=== PATIENT | male | born 1970 | race Caucasian/White ===

== ENCOUNTER 2020-04-13 23:02 | Inpatient (IN) ==
[2020-04-14] MEDS ORDERED: 0.9 % Sodium Chloride 1,000 ML IVC ONE ×3 (00:56→06:14)
[2020-04-14] MEDS ORDERED: 0.9 % Sodium Chloride 1,000 ML ONE (00:58)
[2020-04-14] MEDS ORDERED: D5% in Water 1,000 ML IVC PRN (01:06)
[2020-04-14] MEDS ORDERED: *HR* Dextrose 50 % in Water (Vial) 50 ML VIAL IVP PRN (01:06)
[2020-04-14] MEDS ORDERED: D5% in Water 1,000 ML IVC ONE (01:06)
[2020-04-14] MEDS ORDERED: Dextrose Gel 15 GM/37.5 ML TUBE PO PRN ×2 (01:06)
[2020-04-14] MEDS ORDERED: *HR* Dextrose 50 % in Water (Vial) 50 ML VIAL ONE (01:09)
[2020-04-14] MEDS ORDERED: Naloxone 0.4 MG/ML INJ IVP PRN (01:29)
[2020-04-14] MEDS ORDERED: Acetaminophen IV 500 MG/50 ML INFUS..BTL IVPB ONE (01:46)
[2020-04-14] MEDS ORDERED: Albuterol 2.5 MG/3 ML NEBULIZER IH ONE (02:10)
[2020-04-14] MEDS ORDERED: Calcium Gluconate 1gm/50mL 1 GM/50 ML BAG IVPB ONE ×2 (02:12→11:35)
[2020-04-14 03:17] LABS: Hematocrit 26.1 % (37.5-50.1); Hemoglobin 7.8 g/dL (12.9-16.9); Mean Corpuscular HGB Conc 29.9 g/dL (31.6-35.5); Mean Corpuscular Hemoglobin 26.4 pg (28.0-33.3); Mean Corpuscular Volume 88.2 fL (83.0-100.0); Mean Platelet Volume 10.3 fL (9.4-12.4); Platelet Count 321 K/mcL (140-400); Red Blood Count 2.96 M/mcL (4.19-5.50); Red Cell Distribution Width 16.3 % (11.5-14.5); White Blood Count 11.4 K/mcL (4.3-11.1)
[2020-04-14 03:18] LABS: INR 1.2; Prothrombin Time 14.1 Seconds (9.4-12.1)
[2020-04-14 03:37] LABS: % Iron Saturation 95 % (20-55); Iron 172 mcg/dL (65-175); Transferrin 130 mg/dL (203-362)
[2020-04-14 03:38] LABS: Alanine Aminotransferase 14 Units/L (7-52); Albumin 3.5 g/dL (3.5-5.7); Albumin/Globulin Ratio 0.9 (1.1-2.2); Alkaline Phosphatase 105 Units/L (34-104); Aspartate Amino Transferase 11 Units/L (13-39); Bilirubin,Total 0.3 mg/dL (0.3-1.0); Blood Urea Nitrogen > 130 mg/dL (6-20); Calcium 5.7 mg/dL (8.6-10.3); Carbon Dioxide 5 mEq/L (23-29); Chloride 107 mEq/L (98-107); Globulin 3.9 g/dL (2.4-3.5); Glucose 84 mg/dL (70-105); Magnesium 0.9 mg/dL (1.6-2.6); Phosphorous 12.2 mg/dL (2.7-4.5); Potassium 5.9 mEq/L (3.5-5.1); Sodium 136 mEq/L (136-145); Total Protein 7.4 g/dL (6.4-8.9); eGFR For African Americans 3 (> 60); eGFR For Non-African Americans 2 (> 60)
[2020-04-14] MEDS ORDERED: 0.9 % Sodium Chloride 1,000 ML IV ONE ×2 (03:48→06:33)
[2020-04-14 03:55] LABS: Ferritin 618 ng/mL (20-250)
[2020-04-14] MEDS ORDERED: Magnesium Sulfate 1 GM/102 ML PIGGYBACK IVPB ONE (04:21)
[2020-04-14 08:40] LABS: Hematocrit 24.2 % (37.5-50.1); Hemoglobin 7.3 g/dL (12.9-16.9); Mean Corpuscular HGB Conc 30.2 g/dL (31.6-35.5); Mean Corpuscular Hemoglobin 26.7 pg (28.0-33.3); Mean Corpuscular Volume 88.6 fL (83.0-100.0); Mean Platelet Volume 10.1 fL (9.4-12.4); Platelet Count 313 K/mcL (140-400); Red Blood Count 2.73 M/mcL (4.19-5.50); Red Cell Distribution Width 16.5 % (11.5-14.5); White Blood Count 11.6 K/mcL (4.3-11.1)
[2020-04-14 08:55] LABS: Blood Urea Nitrogen > 130 mg/dL (6-20); Calcium 5.6 mg/dL (8.6-10.3); Carbon Dioxide 6 mEq/L (23-29); Chloride 110 mEq/L (98-107); Glucose 88 mg/dL (70-105); Magnesium 1.1 mg/dL (1.6-2.6); Potassium 5.4 mEq/L (3.5-5.1); Sodium 136 mEq/L (136-145); eGFR For African Americans 3 (> 60); eGFR For Non-African Americans 2 (> 60)
[2020-04-14] MEDS ORDERED: Sodium Bicarbonate 150 MEQ in D5% in Water 1,000 ML IVC PRN ×2 (09:15→09:25)
[2020-04-14] MEDS: SODIUM ZIRCONIUM CYCLOSILICATE 5 GM POWD.PACK PO SCH (09:53)
[2020-04-14] MEDS: Sodium Bicarbonate 150 MEQ in D5% in Water 1,000 ML IVC SCH ×2 (10:15→22:19)
[2020-04-14] MEDS: Calcium Acetate 667 MG CAPSULE PO SCH ×2 (12:28→18:27)
[2020-04-14 14:19] LABS: Blood Urea Nitrogen > 130 mg/dL (6-20); Calcium 5.3 mg/dL (8.6-10.3); Carbon Dioxide 5 mEq/L (23-29); Chloride 109 mEq/L (98-107); Glucose 94 mg/dL (70-105); Potassium 4.5 mEq/L (3.5-5.1); Sodium 137 mEq/L (136-145); eGFR For African Americans 3 (> 60); eGFR For Non-African Americans 2 (> 60)
[2020-04-14 19:50] LABS: Hematocrit 21.3 % (37.5-50.1); Hemoglobin 6.7 g/dL (12.9-16.9)
[2020-04-14 20:24] LABS: Blood Urea Nitrogen > 130 mg/dL (6-20); Calcium 5.5 mg/dL (8.6-10.3); Carbon Dioxide 7 mEq/L (23-29); Chloride 108 mEq/L (98-107); Glucose 117 mg/dL (70-105); Magnesium 1.8 mg/dL (1.6-2.6); Potassium 4.3 mEq/L (3.5-5.1); Sodium 137 mEq/L (136-145); eGFR For African Americans 3 (> 60); eGFR For Non-African Americans 2 (> 60)
[2020-04-15 00:46] LABS: VBG Ionized Calcium 0.67 mmol/L (1.15-1.35)
[2020-04-15 00:49] LABS: Basophils # 0.1 K/mcL (0.0-0.2); Basophils % 0.6 %; Eosinophils # 0.3 K/mcL (0.0-0.6); Eosinophils % 2.6 %; Hematocrit 21.5 % (37.5-50.1); Hemoglobin 6.6 g/dL (12.9-16.9); Immature Granulocytes % 0.9 % (0-4); Lymphocytes # 1.6 K/mcL (0.6-4.6); Lymphocytes % 13.8 %; Mean Corpuscular HGB Conc 30.7 g/dL (31.6-35.5); Mean Corpuscular Volume 84.6 fL (83.0-100.0); Mean Platelet Volume 10.2 fL (9.4-12.4); Monocytes # 1.3 K/mcL (0.0-1.3); Monocytes % 11.3 %; Neutrophils # 8.3 K/mcL (1.6-8.9); Platelet Count 302 K/mcL (140-400); Red Blood Count 2.54 M/mcL (4.19-5.50); Red Cell Distribution Width 16.1 % (11.5-14.5); Segmented Neutrophils % 70.8 %; White Blood Count 11.8 K/mcL (4.3-11.1)
[2020-04-15 01:07] LABS: Complement C3 97 mg/dL (87-200)
[2020-04-15 01:11] LABS: % Iron Saturation 91 % (20-55); Iron 138 mcg/dL (65-175); Rheumatoid Factor < 10 IU/mL (Less than 14); Transferrin 108 mg/dL (203-362)
[2020-04-15 01:12] LABS: Blood Urea Nitrogen > 130 mg/dL (6-20); Calcium 5.3 mg/dL (8.6-10.3); Carbon Dioxide 8 mEq/L (23-29); Chloride 107 mEq/L (98-107); Glucose 82 mg/dL (70-105); Magnesium 1.6 mg/dL (1.6-2.6); Phosphorous 12.1 mg/dL (2.7-4.5); Potassium 4.3 mEq/L (3.5-5.1); Sodium 138 mEq/L (136-145); eGFR For African Americans 3 (> 60); eGFR For Non-African Americans 2 (> 60)
[2020-04-15 01:25] LABS: Ferritin 547 ng/mL (20-250)
[2020-04-15 01:30] LABS: Folate 8.3 ng/mL (3.0-16.0)
[2020-04-15 01:31] LABS: Vitamin B12 233 pg/mL (250-1100)
[2020-04-15 02:12] LABS: Vitamin D 25 Hydroxy 14 ng/mL (30-80)
[2020-04-15 04:19] LABS: Bacteria,Urine Few per hpf (None-Few); Bilirubin,Urine Negative (Negative); Blood,Urine Moderate (Negative); Clarity,Urine Turbid (Clear); Color,Urine Light-Yellow (Yellow); Glucose,Urine (UA) Normal (Normal); Ketones,Urine Negative (Negative); Leukocyte Esterase,Urine Large (Negative); Mucus,Urine Few per lpf (None-Few); Nitrite,Urine Negative (Negative); PH,Urine 6.5 pH Units (5.0-8.0); Protein,Urine 100 mg/dL (Neg-Trace); RBC,Urine 50-100 per hpf (0-3); Specific Gravity,Urine 1.011 (1.010-1.025); Urobilinogen,Urine Normal (Normal); WBC,Urine TNTC per hpf (0-3)
[2020-04-15 04:40] LABS: Protein/Creatinine Ratio,Urine 3.94 mg/mg (0.00-0.20)
[2020-04-15] MEDS ORDERED: 0.9 % Sodium Chloride 250 ML IVC SCH (05:30)
[2020-04-15] MEDS ORDERED: 0.9 % Sodium Chloride 250 ML ONE ×2 (06:03→09:14)
[2020-04-15] MEDS: Calcium Acetate 667 MG CAPSULE PO SCH ×3 (07:27→16:33)
[2020-04-15] MEDS: SODIUM ZIRCONIUM CYCLOSILICATE 5 GM POWD.PACK PO SCH (07:30)
[2020-04-15] MEDS: Sodium Bicarbonate 150 MEQ in D5% in Water 1,000 ML IVC SCH (09:20)
[2020-04-15 13:20] LABS: Hematocrit 24.5 % (37.5-50.1); Hemoglobin 7.8 g/dL (12.9-16.9)
[2020-04-15 16:08] LABS: Hematocrit 25.2 % (37.5-50.1); Hemoglobin 8.2 g/dL (12.9-16.9)
[2020-04-15 21:16] LABS: Hematocrit 25.1 % (37.5-50.1); Hemoglobin 8.2 g/dL (12.9-16.9)
[2020-04-16 00:50] LABS: Basophils # 0.1 K/mcL (0.0-0.2); Basophils % 0.5 %; Eosinophils # 0.3 K/mcL (0.0-0.6); Eosinophils % 2.4 %; Hematocrit 24.7 % (37.5-50.1); Immature Granulocytes % 0.6 % (0-4); Lymphocytes # 1.8 K/mcL (0.6-4.6); Lymphocytes % 14.2 %; Mean Corpuscular HGB Conc 32.4 g/dL (31.6-35.5); Mean Corpuscular Hemoglobin 26.4 pg (28.0-33.3); Mean Corpuscular Volume 81.5 fL (83.0-100.0); Mean Platelet Volume 10.5 fL (9.4-12.4); Monocytes # 1.5 K/mcL (0.0-1.3); Monocytes % 12.2 %; Neutrophils # 8.8 K/mcL (1.6-8.9); Platelet Count 257 K/mcL (140-400); Red Blood Count 3.03 M/mcL (4.19-5.50); Red Cell Distribution Width 15.7 % (11.5-14.5); Segmented Neutrophils % 70.1 %; White Blood Count 12.6 K/mcL (4.3-11.1)
[2020-04-16 01:17] LABS: Blood Urea Nitrogen > 130 mg/dL (6-20); Calcium 5.1 mg/dL (8.6-10.3); Carbon Dioxide 12 mEq/L (23-29); Chloride 102 mEq/L (98-107); Glucose 85 mg/dL (70-105); Magnesium 1.8 mg/dL (1.6-2.6); Phosphorous 11.6 mg/dL (2.7-4.5); Potassium 3.6 mEq/L (3.5-5.1); Sodium 138 mEq/L (136-145); eGFR For African Americans 3 (> 60); eGFR For Non-African Americans 3 (> 60)
[2020-04-16] MEDS: SODIUM ZIRCONIUM CYCLOSILICATE 5 GM POWD.PACK PO SCH (07:22)
[2020-04-16] MEDS: Calcium Acetate 667 MG CAPSULE PO SCH ×3 (07:22→16:37)
[2020-04-16] MEDS ORDERED: Ondansetron 4 MG/2 ML VIAL IVP PRN (07:58)
[2020-04-16] MEDS: Pantoprazole 40 MG VIAL IVP SCH (11:11)
[2020-04-17 01:10] LABS: Basophils # 0.1 K/mcL (0.0-0.2); Basophils % 0.6 %; Eosinophils # 0.4 K/mcL (0.0-0.6); Eosinophils % 3.4 %; Hematocrit 27.3 % (37.5-50.1); Hemoglobin 8.7 g/dL (12.9-16.9); Immature Granulocytes % 0.5 % (0-4); Lymphocytes # 1.8 K/mcL (0.6-4.6); Lymphocytes % 15.5 %; Mean Corpuscular HGB Conc 31.9 g/dL (31.6-35.5); Mean Corpuscular Hemoglobin 26.5 pg (28.0-33.3); Mean Corpuscular Volume 83.2 fL (83.0-100.0); Mean Platelet Volume 10.2 fL (9.4-12.4); Monocytes # 1.3 K/mcL (0.0-1.3); Monocytes % 11.5 %; Neutrophils # 7.9 K/mcL (1.6-8.9); Platelet Count 276 K/mcL (140-400); Red Blood Count 3.28 M/mcL (4.19-5.50); Red Cell Distribution Width 15.4 % (11.5-14.5); Segmented Neutrophils % 68.5 %; White Blood Count 11.5 K/mcL (4.3-11.1)
[2020-04-17 01:51] LABS: Blood Urea Nitrogen > 130 mg/dL (6-20); Calcium 5.5 mg/dL (8.6-10.3); Carbon Dioxide 12 mEq/L (23-29); Chloride 101 mEq/L (98-107); Glucose 58 mg/dL (70-105); Magnesium 1.7 mg/dL (1.6-2.6); Phosphorous 12.3 mg/dL (2.7-4.5); Potassium 3.7 mEq/L (3.5-5.1); Sodium 139 mEq/L (136-145); eGFR For African Americans 3 (> 60); eGFR For Non-African Americans 3 (> 60)
[2020-04-17] MEDS: Pantoprazole 40 MG VIAL IVP SCH (08:04)
[2020-04-17] MEDS: Calcium Acetate 667 MG CAPSULE PO SCH ×3 (08:04→17:01)
[2020-04-17] MEDS: SODIUM ZIRCONIUM CYCLOSILICATE 5 GM POWD.PACK PO SCH (08:04)
[2020-04-17] MEDS: calcitrioL 0.25 MCG CAPSULE PO SCH (14:44)
[2020-04-17] MEDS ORDERED: Calcium Acetate 667 MG CAPSULE PO SCH (17:00)
[2020-04-18 03:36] LABS: Basophils # 0.1 K/mcL (0.0-0.2); Basophils % 0.8 %; Eosinophils # 0.6 K/mcL (0.0-0.6); Eosinophils % 5.5 %; Hematocrit 26.7 % (37.5-50.1); Hemoglobin 8.5 g/dL (12.9-16.9); Immature Granulocytes % 0.4 % (0-4); Lymphocytes # 1.9 K/mcL (0.6-4.6); Mean Corpuscular HGB Conc 31.8 g/dL (31.6-35.5); Mean Corpuscular Hemoglobin 26.5 pg (28.0-33.3); Mean Corpuscular Volume 83.2 fL (83.0-100.0); Mean Platelet Volume 10.6 fL (9.4-12.4); Monocytes # 1.2 K/mcL (0.0-1.3); Monocytes % 11.1 %; Neutrophils # 7.2 K/mcL (1.6-8.9); Platelet Count 317 K/mcL (140-400); Red Blood Count 3.21 M/mcL (4.19-5.50); Red Cell Distribution Width 15.2 % (11.5-14.5); Segmented Neutrophils % 65.2 %
[2020-04-18 03:56] LABS: Blood Urea Nitrogen > 130 mg/dL (6-20); Calcium 6.2 mg/dL (8.6-10.3); Carbon Dioxide 15 mEq/L (23-29); Chloride 100 mEq/L (98-107); Glucose 66 mg/dL (70-105); Magnesium 1.7 mg/dL (1.6-2.6); Phosphorous 11.1 mg/dL (2.7-4.5); Potassium 3.6 mEq/L (3.5-5.1); Sodium 138 mEq/L (136-145); eGFR For African Americans 3 (> 60); eGFR For Non-African Americans 3 (> 60)
[2020-04-18 04:37] LABS: Alpha 2 Globulin (PEP) 0.73 g/dL (0.48-1.05); Beta Globulin (PEP) 0.67 g/dL (0.48-1.10)
[2020-04-18] MEDS: SODIUM ZIRCONIUM CYCLOSILICATE 5 GM POWD.PACK PO SCH (08:11)
[2020-04-18] MEDS: Calcium Acetate 667 MG CAPSULE PO SCH ×3 (08:12→16:36)
[2020-04-18] MEDS: calcitrioL 0.25 MCG CAPSULE PO SCH (08:12)
[2020-04-18] MEDS: Sodium Bicarbonate 75 MEQ in 0.45 % Sodium Chloride 1,000 ML IVC SCH ×2 (09:50→16:37)
[2020-04-18 12:34] LABS: IFE Reflexed NOT DONE
[2020-04-19 06:36] LABS: Basophils # 0.1 K/mcL (0.0-0.2); Basophils % 0.8 %; Eosinophils # 0.7 K/mcL (0.0-0.6); Eosinophils % 6.8 %; Hematocrit 26.4 % (37.5-50.1); Hemoglobin 8.3 g/dL (12.9-16.9); Immature Granulocytes % 0.5 % (0-4); Lymphocytes # 1.9 K/mcL (0.6-4.6); Lymphocytes % 18.3 %; Mean Corpuscular HGB Conc 31.4 g/dL (31.6-35.5); Mean Corpuscular Hemoglobin 25.9 pg (28.0-33.3); Mean Corpuscular Volume 82.5 fL (83.0-100.0); Mean Platelet Volume 10.5 fL (9.4-12.4); Monocytes # 1.4 K/mcL (0.0-1.3); Monocytes % 13.4 %; Neutrophils # 6.4 K/mcL (1.6-8.9); Platelet Count 295 K/mcL (140-400); Red Cell Distribution Width 14.6 % (11.5-14.5); Segmented Neutrophils % 60.2 %; White Blood Count 10.6 K/mcL (4.3-11.1)
[2020-04-19 06:47] LABS: Blood Urea Nitrogen > 130 mg/dL (6-20); Calcium 5.9 mg/dL (8.6-10.3); Carbon Dioxide 19 mEq/L (23-29); Chloride 101 mEq/L (98-107); Glucose 88 mg/dL (70-105); Magnesium 1.4 mg/dL (1.6-2.6); Phosphorous 7.9 mg/dL (2.7-4.5); Potassium 3.3 mEq/L (3.5-5.1); Sodium 139 mEq/L (136-145); eGFR For African Americans 3 (> 60); eGFR For Non-African Americans 3 (> 60)
[2020-04-19] MEDS: Calcium Acetate 667 MG CAPSULE PO SCH ×3 (07:28→16:59)
[2020-04-19] MEDS: calcitrioL 0.25 MCG CAPSULE PO SCH (07:28)
[2020-04-19] MEDS: SODIUM ZIRCONIUM CYCLOSILICATE 5 GM POWD.PACK PO SCH (07:29)
[2020-04-19] MEDS ORDERED: 0.9 % Sodium Chloride 500 ML ONE ×2 (07:49→08:45)
[2020-04-19] MEDS ORDERED: CeFAZolin 2,000 MG/50 ML BAG IVPB ONE (08:55)
[2020-04-19] MEDS ORDERED: *HR* Midazolam HCl 5 MG/5 ML VIAL IVP ONE (08:55)
[2020-04-19] MEDS ORDERED: *HR* FentaNYL (PF) 100 MCG/2 ML VIAL IVP ONE (08:55)
[2020-04-19] MEDS ORDERED: *HR* Midazolam HCl 2 MG/2 ML VIAL ONE (09:05)
[2020-04-19] MEDS ORDERED: Isovue-300 150 ML INFUS..BTL IVP ONE (09:09)
[2020-04-19 11:02] LABS: Hepatitis B Surface Antibody < 3.10 mIU/mL
[2020-04-19 11:13] LABS: Hepatitis B Surface Antigen Nonreactive (Nonreactive)
[2020-04-19] MEDS: Cyanocobalamin (B-12) 1,000 MCG TABLET PO SCH (12:04)
[2020-04-20 02:12] LABS: Basophils # 0.1 K/mcL (0.0-0.2); Basophils % 0.9 %; Eosinophils # 0.6 K/mcL (0.0-0.6); Eosinophils % 5.8 %; Hematocrit 25.6 % (37.5-50.1); Hemoglobin 8.4 g/dL (12.9-16.9); Immature Granulocytes % 0.6 % (0-4); Lymphocytes # 1.7 K/mcL (0.6-4.6); Lymphocytes % 16.2 %; Mean Corpuscular HGB Conc 32.8 g/dL (31.6-35.5); Mean Corpuscular Hemoglobin 27.3 pg (28.0-33.3); Mean Corpuscular Volume 83.1 fL (83.0-100.0); Mean Platelet Volume 10.6 fL (9.4-12.4); Monocytes # 1.3 K/mcL (0.0-1.3); Neutrophils # 6.8 K/mcL (1.6-8.9); Platelet Count 301 K/mcL (140-400); Red Blood Count 3.08 M/mcL (4.19-5.50); Red Cell Distribution Width 15.1 % (11.5-14.5); Segmented Neutrophils % 64.5 %; White Blood Count 10.5 K/mcL (4.3-11.1)
[2020-04-20 02:31] LABS: Blood Urea Nitrogen > 130 mg/dL (6-20); Calcium 6.1 mg/dL (8.6-10.3); Carbon Dioxide 17 mEq/L (23-29); Chloride 100 mEq/L (98-107); Glucose 138 mg/dL (70-105); Magnesium 1.5 mg/dL (1.6-2.6); Sodium 137 mEq/L (136-145); eGFR For African Americans 4 (> 60); eGFR For Non-African Americans 3 (> 60)
[2020-04-20] MEDS: Cyanocobalamin (B-12) 1,000 MCG TABLET PO SCH (07:15)
[2020-04-20] MEDS: Calcium Acetate 667 MG CAPSULE PO SCH ×3 (07:16→16:17)
[2020-04-20] MEDS: calcitrioL 0.25 MCG CAPSULE PO SCH (07:16)
[2020-04-20] MEDS ORDERED: Ergocalciferol (VIT D2) 50,000 UNIT (1.25MG) CAP PO SCH (11:45)
[2020-04-21 04:10] LABS: Basophils # 0.1 K/mcL (0.0-0.2); Basophils % 0.9 %; Eosinophils # 0.7 K/mcL (0.0-0.6); Eosinophils % 6.8 %; Hematocrit 29.2 % (37.5-50.1); Hemoglobin 9.3 g/dL (12.9-16.9); Immature Granulocytes % 0.7 % (0-4); Lymphocytes # 2.1 K/mcL (0.6-4.6); Mean Corpuscular HGB Conc 31.8 g/dL (31.6-35.5); Mean Corpuscular Hemoglobin 26.5 pg (28.0-33.3); Mean Corpuscular Volume 83.2 fL (83.0-100.0); Mean Platelet Volume 10.6 fL (9.4-12.4); Monocytes # 1.4 K/mcL (0.0-1.3); Monocytes % 12.8 %; Neutrophils # 6.2 K/mcL (1.6-8.9); Platelet Count 323 K/mcL (140-400); Red Blood Count 3.51 M/mcL (4.19-5.50); Red Cell Distribution Width 15.1 % (11.5-14.5); Segmented Neutrophils % 58.8 %; White Blood Count 10.6 K/mcL (4.3-11.1)
[2020-04-21 04:58] LABS: Blood Urea Nitrogen > 130 mg/dL (6-20); Calcium 6.7 mg/dL (8.6-10.3); Carbon Dioxide 17 mEq/L (23-29); Chloride 99 mEq/L (98-107); Glucose 87 mg/dL (70-105); Magnesium 1.3 mg/dL (1.6-2.6); Phosphorous 5.7 mg/dL (2.7-4.5); Potassium 4.1 mEq/L (3.5-5.1); Sodium 136 mEq/L (136-145); eGFR For African Americans 4 (> 60); eGFR For Non-African Americans 3 (> 60)
[2020-04-21] MEDS: Cyanocobalamin (B-12) 1,000 MCG TABLET PO SCH (08:42)
[2020-04-21] MEDS: calcitrioL 0.25 MCG CAPSULE PO SCH (08:42)
[2020-04-21] MEDS: Calcium Acetate 667 MG CAPSULE PO SCH ×3 (08:42→15:51)
[2020-04-22 04:20] LABS: Basophils # 0.1 K/mcL (0.0-0.2); Basophils % 0.8 %; Eosinophils # 0.8 K/mcL (0.0-0.6); Eosinophils % 7.8 %; Hematocrit 30.8 % (37.5-50.1); Hemoglobin 9.9 g/dL (12.9-16.9); Immature Granulocytes % 0.5 % (0-4); Lymphocytes # 2.3 K/mcL (0.6-4.6); Mean Corpuscular HGB Conc 32.1 g/dL (31.6-35.5); Mean Corpuscular Hemoglobin 27.1 pg (28.0-33.3); Mean Corpuscular Volume 84.4 fL (83.0-100.0); Mean Platelet Volume 10.6 fL (9.4-12.4); Monocytes # 1.1 K/mcL (0.0-1.3); Monocytes % 10.6 %; Neutrophils # 6.3 K/mcL (1.6-8.9); Platelet Count 338 K/mcL (140-400); Red Blood Count 3.65 M/mcL (4.19-5.50); Red Cell Distribution Width 14.8 % (11.5-14.5); Segmented Neutrophils % 59.3 %; White Blood Count 10.7 K/mcL (4.3-11.1)
[2020-04-22 04:41] LABS: Blood Urea Nitrogen > 130 mg/dL (6-20); Calcium 7.9 mg/dL (8.6-10.3); Carbon Dioxide 18 mEq/L (23-29); Chloride 99 mEq/L (98-107); Glucose 84 mg/dL (70-105); Magnesium 1.8 mg/dL (1.6-2.6); Phosphorous 6.2 mg/dL (2.7-4.5); Potassium 4.1 mEq/L (3.5-5.1); Sodium 136 mEq/L (136-145); eGFR For African Americans 4 (> 60); eGFR For Non-African Americans 3 (> 60)
[2020-04-22] MEDS: Calcium Acetate 667 MG CAPSULE PO SCH ×3 (09:06→16:32)
[2020-04-22] MEDS: Finasteride 5 MG TABLET PO SCH (09:06)
[2020-04-22] MEDS: calcitrioL 0.25 MCG CAPSULE PO SCH (09:06)
[2020-04-22] MEDS: Cyanocobalamin (B-12) 1,000 MCG TABLET PO SCH (09:06)
[2020-04-22] MEDS: Sodium Bicarbonate 75 MEQ in 0.45 % Sodium Chloride 1,000 ML IVC SCH (16:32)
[2020-04-23] MEDS: Sodium Bicarbonate 75 MEQ in 0.45 % Sodium Chloride 1,000 ML IVC SCH (06:57)
[2020-04-23] MEDS: calcitrioL 0.25 MCG CAPSULE PO SCH (07:46)
[2020-04-23] MEDS: Finasteride 5 MG TABLET PO SCH (07:46)
[2020-04-23] MEDS: Cyanocobalamin (B-12) 1,000 MCG TABLET PO SCH (07:46)
[2020-04-23] MEDS: Calcium Acetate 667 MG CAPSULE PO SCH ×3 (07:46→16:33)
[2020-04-23 08:49] LABS: Basophils # 0.1 K/mcL (0.0-0.2); Basophils % 0.9 %; Eosinophils # 0.8 K/mcL (0.0-0.6); Eosinophils % 7.5 %; Hematocrit 30.1 % (37.5-50.1); Hemoglobin 9.6 g/dL (12.9-16.9); Immature Granulocytes % 0.5 % (0-4); Lymphocytes # 2.6 K/mcL (0.6-4.6); Lymphocytes % 25.4 %; Mean Corpuscular HGB Conc 31.9 g/dL (31.6-35.5); Mean Corpuscular Hemoglobin 27.2 pg (28.0-33.3); Mean Corpuscular Volume 85.3 fL (83.0-100.0); Mean Platelet Volume 10.3 fL (9.4-12.4); Monocytes # 0.8 K/mcL (0.0-1.3); Neutrophils # 5.9 K/mcL (1.6-8.9); Platelet Count 332 K/mcL (140-400); Red Blood Count 3.53 M/mcL (4.19-5.50); Red Cell Distribution Width 14.9 % (11.5-14.5); Segmented Neutrophils % 57.7 %; White Blood Count 10.2 K/mcL (4.3-11.1)
[2020-04-23 09:10] LABS: Calcium 7.9 mg/dL (8.6-10.3); Magnesium 1.5 mg/dL (1.6-2.6); Phosphorous 5.9 mg/dL (2.7-4.5)
[2020-04-23] MEDS ORDERED: Heparin 1,000 UNITS/500 mL 500 ML ONE (13:15)
[2020-04-23] MEDS ORDERED: Lidocaine/EPI 1:100k 1% 50 ML VIAL ONE (13:15)
[2020-04-23] MEDS ORDERED: *HR* Midazolam HCl 2 MG/2 ML VIAL IVP ONE (13:26)
[2020-04-23] MEDS ORDERED: *HR* FentaNYL (PF) 100 MCG/2 ML VIAL IVP ONE (13:27)
[2020-04-23] MEDS ORDERED: CeFAZolin 2,000 MG/50 ML BAG IVPB ONE (13:27)
[2020-04-23] MEDS ORDERED: 0.9 % Sodium Chloride 500 ML ONE (13:46)
[2020-04-23] MEDS ORDERED: *HR* Heparin 5,000 UNIT/ML VIAL ONE (14:05)
[2020-04-24 03:22] LABS: Basophils # 0.1 K/mcL (0.0-0.2); Basophils % 0.9 %; Eosinophils # 0.7 K/mcL (0.0-0.6); Eosinophils % 7.1 %; Hematocrit 31.4 % (37.5-50.1); Hemoglobin 9.7 g/dL (12.9-16.9); Immature Granulocytes % 0.6 % (0-4); Lymphocytes # 2.1 K/mcL (0.6-4.6); Lymphocytes % 20.6 %; Mean Corpuscular HGB Conc 30.9 g/dL (31.6-35.5); Mean Corpuscular Hemoglobin 26.5 pg (28.0-33.3); Mean Corpuscular Volume 85.8 fL (83.0-100.0); Mean Platelet Volume 10.6 fL (9.4-12.4); Neutrophils # 6.1 K/mcL (1.6-8.9); Platelet Count 325 K/mcL (140-400); Red Blood Count 3.66 M/mcL (4.19-5.50); Red Cell Distribution Width 14.8 % (11.5-14.5); Segmented Neutrophils % 60.8 %; White Blood Count 10.1 K/mcL (4.3-11.1)
[2020-04-24 03:47] LABS: Calcium 8.2 mg/dL (8.6-10.3); Potassium 4.2 mEq/L (3.5-5.1)
[2020-04-24] MEDS: calcitrioL 0.25 MCG CAPSULE PO SCH (07:17)
[2020-04-24] MEDS: Cyanocobalamin (B-12) 1,000 MCG TABLET PO SCH (07:17)
[2020-04-24] MEDS: Finasteride 5 MG TABLET PO SCH (07:17)
[2020-04-24] MEDS: Calcium Acetate 667 MG CAPSULE PO SCH ×3 (07:17→17:25)
[2020-04-24] MEDS ORDERED: 0.9 % Sodium Chloride 250 ML IVC PRN (08:17)
[2020-04-24] MEDS ORDERED: *HR* Heparin 10,000 UNIT/10 ML VIAL IV PRN ×2 (08:17)
[2020-04-24] MEDS ORDERED: 0.9 % Sodium Chloride 1,000 ML PRIME SCH (08:30)
[2020-04-25 01:59] LABS: Basophils # 0.1 K/mcL (0.0-0.2); Basophils % 0.6 %; Eosinophils # 0.8 K/mcL (0.0-0.6); Eosinophils % 7.7 %; Hematocrit 31.2 % (37.5-50.1); Hemoglobin 9.7 g/dL (12.9-16.9); Immature Granulocytes % 0.3 % (0-4); Lymphocytes # 1.7 K/mcL (0.6-4.6); Lymphocytes % 17.5 %; Mean Corpuscular HGB Conc 31.1 g/dL (31.6-35.5); Mean Corpuscular Hemoglobin 26.8 pg (28.0-33.3); Mean Corpuscular Volume 86.2 fL (83.0-100.0); Mean Platelet Volume 10.9 fL (9.4-12.4); Monocytes % 10.7 %; Neutrophils # 6.2 K/mcL (1.6-8.9); Platelet Count 283 K/mcL (140-400); Red Blood Count 3.62 M/mcL (4.19-5.50); Red Cell Distribution Width 14.8 % (11.5-14.5); Segmented Neutrophils % 63.2 %; White Blood Count 9.7 K/mcL (4.3-11.1)
[2020-04-25 02:07] LABS: Calcium 9.1 mg/dL (8.6-10.3); Potassium 4.6 mEq/L (3.5-5.1)
[2020-04-25] MEDS: Calcium Acetate 667 MG CAPSULE PO SCH ×3 (07:42→16:19)
[2020-04-25] MEDS: Finasteride 5 MG TABLET PO SCH (07:42)
[2020-04-25] MEDS: Cyanocobalamin (B-12) 1,000 MCG TABLET PO SCH (07:42)
[2020-04-25] MEDS: calcitrioL 0.25 MCG CAPSULE PO SCH (07:42)
[2020-04-25] MEDS ORDERED: 0.9 % Sodium Chloride 250 ML IVC PRN (07:58)
[2020-04-25] MEDS ORDERED: *HR* Heparin 10,000 UNIT/10 ML VIAL IV PRN ×2 (07:58)
[2020-04-25] MEDS ORDERED: 0.9 % Sodium Chloride 1,000 ML PRIME SCH (08:00)
[2020-04-26 07:10] LABS: Calcium 9.2 mg/dL (8.6-10.3); Potassium 4.4 mEq/L (3.5-5.1)
[2020-04-26] MEDS: calcitrioL 0.25 MCG CAPSULE PO SCH (07:16)
[2020-04-26] MEDS: Cyanocobalamin (B-12) 1,000 MCG TABLET PO SCH (07:16)
[2020-04-26] MEDS: Finasteride 5 MG TABLET PO SCH (07:16)
[2020-04-26] MEDS: Calcium Acetate 667 MG CAPSULE PO SCH ×3 (07:17→15:33)
[2020-04-26] MEDS ORDERED: 0.9 % Sodium Chloride 250 ML IVC PRN (07:24)
[2020-04-26] MEDS ORDERED: *HR* Heparin 10,000 UNIT/10 ML VIAL IV PRN (07:24)
[2020-04-26 14:54] VITALS: BP 114/75
== END 2020-04-26 19:00 | disposition home or self-care (01) | DRG 698 ==
LOC: 2NNU → SUATTDRO 04-14 00:38 → OBSVTOIN 04-14 00:38 → 2ANU 04-17 16:38
PROVIDERS: ADMIT Family Medicine; ATTEND Internal Medicine
PROC: IRPERMA (2020-04-23 13:00)